=== PATIENT | male | born 1960 | race Caucasian/White ===

== ENCOUNTER 2019-02-15 09:35 | Day surgery (SDC) | payer OTHER ==
[2019-02-13 10:16] LABS: HEMATOCRIT 45.7 % (42.0-54.0); HEMOGLOBIN 15.4 g/dL (13.5-17.5); MCH 31.4 pg (26.0-34.0); MCHC 33.7 g/dL (31.0-37.0); MCV 93.3 fL (80.0-100.0); MEAN PLATELET VOLUME 10.4 fL (7.4-10.4); RBC 4.9 10x6/uL (4.20-6.10); RDW 12.4 % (11.5-14.5); WBC 8.7 10x3/uL (4.8-10.8)
[~2019-02-15] VITALS: Ht 188 cm; Wt 100.7 kg
[~2019-02-15 09:35] MED LIST: CELEBREX200 MG PO; CYCLOBENZAPRINE10 MG PO; FLOMAX0.4 MG PO; ISOSORBIDE MONO30 M1 PO; LIPITOR40 MG PO; LISINOPRIL10 MG PO; NEURONTIN 300300 MG PO; NEXIUM40 MG PO; PLAVIX75 MG PO
[2019-02-15] MEDS ORDERED: TENORMIN25 MG PO (10:22)
[2019-02-15 10:28] VITALS: BP 125/79; Ht 188 cm; Wt 100.7 kg
--- NOTE | 2019-02-15 15:05 | NUR ---
COPY OF 12 LEAD GIVEN TO PATIENTS FAMILY PER ANES.
--- NOTE | 2019-02-15 15:55 | NUR ---
PATIENT AMBULATES TO BATHROOM WITH WALKER, MAINTAINING [id number] ON RLE DUE TO DEEP NUMBNESS OF EXTREMITY. WALKER HAS BEEN ARRANGED FOR HOME USE DUE TO NUMBNESS OF RLE. PATIENT AMBULATES WITH STAND-BY ASSIST WITHOUT DIZZINESS OR UNSTEADINESS. PIV DC'D WITH TIP INTACT, DRESSING IN PERSONAL CLOTHING
--- NOTE | 2019-03-06 09:04 | OP ---
PATIENT NAME: NAGI CHIU MEDICAL RECORD: [id number] :60 [facility] DATE: SURGEON: DES CRAIG DATE OF OPERATION: 02/15/2019 SURGEON: Des Craig DPM PREOPERATIVE DIAGNOSIS: Plantar fasciitis, right foot. POSTOPERATIVE DIAGNOSIS: Plantar fasciitis, right foot. PROCEDURE: Open partial plantar fasciotomy, right foot. ANESTHESIA: Local with monitored anesthesia care. HEMOSTASIS: Pneumatic ankle tourniquet inflated to 250 mmHg. ESTIMATED BLOOD LOSS: Minimal. MATERIALS: 3-0 Vicryl, 4-0 nylon. INJECTABLES: 10 cc of 0.5% bupivacaine plain. The patient has longstanding history of pain associated with the right heel. He has not improved with traditional conservative modalities. Regarding the plantar fasciitis, we have discussed the proposed procedure. The risks and benefits were reviewed. Complications were discussed. All questions were answered. He was appropriately consented for the above-mentioned procedure. DESCRIPTION OF PROCEDURE: The patient was brought in the operating room and placed on the operating table in the supine position. A timeout was called with Dr. Craig, who identified the patient, the surgical site, and the surgery to be performed. Once appropriate anesthesia was obtained, the foot was prepped and draped in the usual aseptic manner. The pneumatic ankle tourniquet was inflated to 250 mmHg on the well-padded right ankle. Attention was directed to the plantar aspect of the right foot where a 2 cm incision was made over the plantar medial aspect of the heel, the subcutaneous fat was then dissected and the plantar fascia was identified at the base of the incision. Next, utilizing a fresh #15 blade, the medial one-third of the plantar fascia was sharply transected. The plantar fascia was still found to be somewhat tight, so additionally the plantar fascia was cut approximately 50% across the medial aspect of the plantar fascia. The plantar fascia was then noted to be in a more rested position. The surgical site was then irrigated with copious amounts of normal sterile saline via bulb syringe. The subQ tissues were then reapproximated and coapted using 3-0 Vicryl. The skin was reapproximated and coapted using 4-0 nylon. A dressing consisting of Coban was applied to the right foot. The pneumatic ankle tourniquet was deflated and cap refill time is immediate to all digits of the right foot. The patient tolerated the procedure and anesthesia well. He left the operating room with vital signs stable and capillary refill time intact. OPERATIVE REPORT [id number] NAGI CHIU The patient will be discharged home with instructions to ice and elevate the right foot. He was dispensed a boot to help further offload the surgical site. He was provided with prescriptions for Phenergan 25 mg and [place] 5/325. There were no complications with this procedure. We will follow up with him in 1 week. TRANSINT:[id number] Voice Confirmation ID: [id number] DOCUMENT ID: [id number] DES CRAIG at 0904 CC: [id number] DICTATION DATE: 02/15/19 1423 BINDING FOLDER MACHINE: 02/15/19 2348 [facility] 02/15/19 [id number] [place] [address]
== END 2019-02-15 16:10 | disposition home or self-care (01) ==
LOC: D.OPS 09:35 → D.PAN 12:00 → D.OPS 16:10
PROVIDERS: Anesthesiology; ATTEND Podiatrist
DX: M72.2 Plantar fascial fibromatosis (principal)

== ENCOUNTER 2019-03-23 09:30 | Day surgery (SDC) | payer OTHER ==
[2019-03-22 10:37] LABS: HEMATOCRIT 42.7 % (42.0-54.0); HEMOGLOBIN 14.6 g/dL (13.5-17.5); MCH 31.7 pg (26.0-34.0); MCHC 34.2 g/dL (31.0-37.0); MCV 92.6 fL (80.0-100.0); MEAN PLATELET VOLUME 10.2 fL (7.4-10.4); RBC 4.61 10x6/uL (4.20-6.10); RDW 12.5 % (11.5-14.5); WBC 8.3 10x3/uL (4.8-10.8)
[~2019-03-23] VITALS: Ht 185.4 cm; Wt 99.8 kg
--- NOTE | ~2019-03-23 | OP ---
PATIENT NAME: NAGI CHIU MEDICAL RECORD: [id number] :60 LOCATION:D[facility] ADMISSION DATE: SURGEON: DES CRAIG DATE OF OPERATION: 03/23/2019 SURGEON: Des Craig DPM PREOPERATIVE DIAGNOSIS: Plantar fasciitis, left foot. POSTOPERATIVE DIAGNOSIS: Plantar fasciitis, left foot. PROCEDURE: Plantar fasciotomy, left foot. ANESTHESIA: Local with monitored anesthesia care. HEMOSTASIS: Pneumatic ankle tourniquet inflated to 250 mmHg. ESTIMATED BLOOD LOSS: Minimal. MATERIALS: 3-0 Vicryl, 4-0 nylon. INJECTABLES: A 10 cc of 0.5% bupivacaine plain. The patient has longstanding history of pain associated with the plantar fascia of the left foot. He has not improved with conservative modalities. He is here today for partial plantar fasciotomy of the left foot. We have discussed the risks and benefits of the procedure. Complications were reviewed. All questions were answered. Of note, he went through the same procedure on the right foot last month and did quite well. The patient was brought in the operating room and placed on the operating table in supine position. A timeout was called with Dr. Craig, who identified the patient, the surgical site, and surgery to be performed. Once appropriate anesthesia was obtained, the foot was prepped and draped in the usual aseptic manner. The pneumatic ankle tourniquet was inflated to 250 mmHg on the well-padded left ankle. Attention was directed to the plantar aspect of the left foot where a 2-cm linear incision was made just over the medial calcaneal tubercle. This incision was carried deep to soft tissue with care being taken to retract all vital neurovascular structures. All bleeders were cauterized along the way. At the base of this incision, the plantar fascia was identified. It was noted to be tight. Next, utilizing a fresh 15 blade, the medial one-third of the plantar fascia was sharply transected. The surgical site was then inspected for any remaining tight fascial bands and none were noted. The surgical site was then irrigated with copious amounts of normal sterile saline via bulb syringe. The subQ structures were then reapproximated and coapted using 3-0 Vicryl. The skin was then reapproximated and coapted using 4-0 nylon. A dressing consisting of Xeroform, 4 x 4's, Kerlix, and Maurilio bandage was applied to the left foot. The pneumatic ankle tourniquet was deflated and cap refill time is immediate to all digits of the left foot. The patient tolerated the procedure and anesthesia well. He left the operating OPERATIVE REPORT [id number] NAGI CHIU with vital signs stable. The patient was discharged home with instructions to ice and elevate the left foot. He has a boot from previous foot surgery. He is to utilize that to further offload the foot. He has my cell phone number for any afterhours difficulties. He was provided with a prescription for [place] 5/325 and Phenergan 25 mg. There were no complications with this procedure. We will follow up with him next week. TRANSINT:[id number] Voice Confirmation ID: [id number] DOCUMENT ID: [id number] DES CRAIG CC: [id number] DICTATION DATE: 03/23/191409 AUTOMOTIVE HEAVY MECHANIC: 03/23/192056 [facility] 03/23/19 [id number] [place] [address]
[~2019-03-23 09:30] MED LIST changes: +NITROQUICK0.4 MG SL; +TENORMIN25 MG PO
[2019-03-23 10:11] VITALS: BP 132/76; Ht 185.4 cm; Wt 99.8 kg
== END 2019-03-23 14:20 | disposition home or self-care (01) ==
LOC: D.OPS 09:30 → D.PAN 12:45 → D.OPS 12:45
PROVIDERS: Anesthesiology; ATTEND Podiatrist
DX: M72.2 Plantar fascial fibromatosis (principal)